=== PATIENT | male | born 1990 | race African-American/Black ===

== ENCOUNTER 2021-12-20 04:19 | Inpatient (IN) | payer MEDICAID, OTHER ==
[~2021-12-20] VITALS: Ht 180.3 cm; Wt 91.0 kg
[2021-12-20 06:57] LABS: HEMATOCRIT. 43.2 % (42.0-52.0); HEMOGLOBIN. 14.4 g/dL (14.0-18.0); MEAN CORPUSCULAR HEMOGLOBIN 29.5 pg (28.0-32.0); MEAN CORPUSCULAR VOLUME 88.6 fL (80.0-94.0); MEAN PLATELET VOLUME 10.4 fl (7.4-10.4); PLATELET 137 x1000/uL (130-400); RED BLOOD CELL COUNT 4.87 mill/uL (4.7-6.1); RED CELL DISTRIBUTION WIDTH 13.7 % (11.6-14.6)
[2021-12-20 07:05] LABS: CHLORIDE 107 mEq/L (98-107)
[2021-12-20 07:20] LABS: ETHANOL BLOOD < 10 mg/dL
[2021-12-20 07:23] LABS: PLATELET ESTIMATE NORMAL
[2021-12-20] MEDS: ACETAMINOPHEN 325MG TABLET PO ONE ×2 (08:45→08:53)
[2021-12-20] MEDS: OLANZAPINE 5MG TABLET ODT PO SCH ×2 (12:15→22:00)
[2021-12-20] MEDS ORDERED: MIDAZOLAM HCL 2 MG/2 ML VIAL IM ONE (12:45)
[2021-12-20] MEDS ORDERED: HALOPERIDOL LACTATE 5MG/ML VIAL IM ONE ×2 (12:45→16:15)
[2021-12-20] MEDS ORDERED: CEFTRIAXONE 1 G PREMIX 50 ML IV ONE (12:45)
[2021-12-20] MEDS: VANCOMYCIN 1G PREMIX 200 ML IV SCH (12:59)
[2021-12-20 14:18] LABS: CLARITY URINE CLEAR (CLEAR); COLOR URINE DARK YELLOW (YELLOW); KETONES URINE 2+ (NEGATIVE); LEUKOCYTE ESTERASE URINE NEGATIVE (NEGATIVE); NITRITE URINE NEGATIVE (NEGATIVE); OCCULT BLOOD URINE NEGATIVE (NEGATIVE); PH URINE 5.5 (4.5-8.0); PROTEIN URINE 1+ (NEGATIVE); SPECIFIC GRAVITY URINE 1.035 (1.005-1.030)
[2021-12-20 14:36] LABS: *AMPHETAMINES SCREEN URINE NEGATIVE (NEGATIVE); *BARBITURATES SCREEN URINE NEGATIVE (NEGATIVE); *BENZODIAZEPINES SCREEN URINE NEGATIVE (NEGATIVE); *COCAINE SCREEN URINE NEGATIVE (NEGATIVE); CANNABINOID URINE SCREEN PRESUMTIVE POSITIVE (NEGATIVE); METHADONE URINE SCREEN NEGATIVE (NEGATIVE); OPIATES URINE SCREEN NEGATIVE (NEGATIVE); PHENCYCLIDINE URINE SCREEN NEGATIVE (NEGATIVE)
[2021-12-20] MEDS ORDERED: CLONIDINE 0.1MG TABLET PO PRN (16:30)
[2021-12-20] MEDS ORDERED: ACETAMINOPHEN 325MG TABLET PO PRN (16:30)
[2021-12-20] MEDS ORDERED: DOCUSATE SODIUM 100MG CAPSULE PO PRN (16:30)
[2021-12-21] MEDS: DIPHENHYDRAMINE 50MG/ML VIAL IV PRN ×2 (00:37→08:49)
[2021-12-21] MEDS: OLANZAPINE 5MG TABLET ODT PO SCH ×2 (08:49→21:58)
[2021-12-21] MEDS: HALOPERIDOL LACTATE 5MG/ML VIAL IM PRN (08:49)
[2021-12-21 13:03] LABS: BASOPHILS % 0.4 % (0.0-2.0); HEMATOCRIT. 47.4 % (42.0-52.0); HEMOGLOBIN. 15.9 g/dL (14.0-18.0); LYMPHOCYTES % 20.8 % (20.0-50.0); MEAN CORPUSCULAR HEMOGLOBIN 29.6 pg (28.0-32.0); MEAN CORPUSCULAR VOLUME 88.5 fL (80.0-94.0); MEAN PLATELET VOLUME 10.6 fl (7.4-10.4); MONOCYTES % 9.7 % (2.0-8.0); NEUTROPHILS % 69.1 % (40.0-76.0); PLATELET 106 x1000/uL (130-400); RED BLOOD CELL COUNT 5.35 mill/uL (4.7-6.1); RED CELL DISTRIBUTION WIDTH 13.4 % (11.6-14.6)
[2021-12-21] MEDS: CEFTRIAXONE 1 G PREMIX 50 ML IV SCH (13:03)
[2021-12-21] MEDS: VANCOMYCIN 1G PREMIX 200 ML IV SCH (13:26)
[2021-12-21 13:33] LABS: CHLORIDE 103 mEq/L (98-107)
[2021-12-21] MEDS ORDERED: POTASSIUM CHLORIDE 20MEQ TABLET SR PO SCH (15:00)
[2021-12-21 15:09] LABS: CHLORIDE 107 mEq/L (98-107)
[2021-12-22] MEDS: HALOPERIDOL LACTATE 5MG/ML VIAL IM PRN (01:09)
[2021-12-22] MEDS: DIPHENHYDRAMINE 50MG/ML VIAL IV PRN (02:21)
[2021-12-22] MEDS: OLANZAPINE 5MG TABLET ODT PO SCH ×2 (09:00→21:45)
[2021-12-22] MEDS: CEFTRIAXONE 1 G PREMIX 50 ML IV SCH (13:55)
[2021-12-22] MEDS: VANCOMYCIN 1G PREMIX 200 ML IV SCH (13:55)
[2021-12-23] MEDS: DIPHENHYDRAMINE 50MG/ML VIAL IV PRN (04:25)
[2021-12-23] MEDS: HALOPERIDOL LACTATE 5MG/ML VIAL IM PRN (04:25)
[2021-12-23 05:51] LABS: HEMATOCRIT 49.6 % (42.0-52.0); HEMOGLOBIN 16.5 g/dL (14.0-18.0); MEAN CORPUSCULAR HEMOGLOBIN 29.8 pg (28.0-32.0); MEAN CORPUSCULAR VOLUME 89.3 fL (80.0-94.0); PLATELET 116 x1000/uL (130-400); RED BLOOD CELL COUNT 5.56 mill/uL (4.7-6.1); RED CELL DISTRIBUTION WIDTH 13.5 % (11.6-14.6)
[2021-12-23 05:54] LABS: CHLORIDE 102 mEq/L (98-107)
[2021-12-23] MEDS ORDERED: CEFTRIAXONE 1,000 MG in DEXTROSE 5% WATER 50 ML IV SCH (13:00)
[2021-12-23] MEDS: OLANZAPINE 5MG TABLET ODT PO SCH (21:00)
[2021-12-24] MEDS: OLANZAPINE 5MG TABLET ODT PO SCH (09:41)
[2021-12-24 12:24] VITALS: BP 121/82
== END 2021-12-24 13:39 | disposition home or self-care (01) | DRG 720 ==
LOC: EDBD 04:19 → ER 04:19 → MICUSO 15:01 → EDBEDREQTM 15:53 → EDBEDREQ 15:53 → EDBEDREQDT 12-21 04:43 → EDBEDREQTM 12-21 04:43 → EDBEDREQSVC 12-21 04:43 → 6WST 12-23 07:26 → MICUSO 12-23 07:44
PROVIDERS: ADMIT Internal Medicine; ATTEND Internal Medicine
DX: A41.89 Other specified sepsis (principal); N17.0 Acute kidney failure with tubular necrosis; U07.1 COVID-19; R77.8 Other specified abnormalities of plasma proteins; F12.90 Cannabis use, unspecified, uncomplicated; F29 Unspecified psychosis not due to a substance or known physiological condition; E87.6 Hypokalemia; Z78.1 Physical restraint status
CPT/HCPCS: 36415; 71045; 80048; 80053; 80305; 80307; 80320; 80329; 81003; 83605; 83735; 84145; 84443; 84484; 85025; 85027; 85379; 93005; 93970; 99291; J0696; J1200; J1630; J2250; J3370; J7060; U0003; U0005; A4315; G0480